=== PATIENT | female | born 1975 | race African-American/Black ===

== ENCOUNTER 2017-05-03 10:16 | Emergency (ER) | payer BC ==
[~2017-05-03] VITALS: Ht 157.5 cm; Wt 56.7 kg
[~2017-05-03 10:16] MED LIST: BENTYL PO; BENTYL20 MG PO; PANTOPRAZOLE SO40 MG PO; PERIACTIN PO; PROTONIX20 MG PO; VICODIN PO; ZOFRAN ODT4 MG PO
== END 2017-05-03 15:53 | disposition home or self-care (01) ==
LOC: ER 10:16
DX: R50.9 Fever, unspecified (principal); R05 Cough; J11.1 Influenza due to unidentified influenza virus with other respiratory manifestations; B34.9 Viral infection, unspecified
CPT/HCPCS: 87400; 99283

== ENCOUNTER 2017-09-10 10:48 | Emergency (ER) | payer BC ==
[~2017-09-10] VITALS: Ht 157.5 cm; Wt 64.9 kg
[2017-09-10] MEDS ORDERED: METHYLPREDNISOLONE ACETATE 40 MG/ML VIAL IM ONE (13:45)
== END 2017-09-10 12:30 | disposition short-term general hospital (02) ==
LOC: ER 10:48
DX: M25.542 Pain in joints of left hand (principal)

== ENCOUNTER 2017-09-16 09:58 | Emergency (ER) | payer BC ==
[~2017-09-16] VITALS: Ht 157.5 cm; Wt 64.9 kg
--- OUTSIDE RECORDS SUMMARY | 2017-09-16 10:01 | XMS REPORT | Continuity of Care Document ---
Author Author [facility] Organization [facility] Address [address] [place] [address] Phone Unavailable Care Team Providers Care Telecommunication Engineer Name Role Phone PANFILO FRANCOIS MD PCP Insurance Providers Guarantor Richa Meredith Address [address] [place] [address] Email [email or web address] [facility] Ppo Policy Number [id number] Subscriber's Name Richa Meredith Relationship 18 Self / Same As Patient Group Number [id number] Group Name [facility] Effective Date 14 Advance Directives Directive Response Recorded Date/Time Does the patient have an advance directive? No 01/31/14 3:27pm If yes, is advance directive on file with [facility]? No 01/31/14 3:27pm If not on file with [facility] will patient provide a copy? No 09/29/15 8:52am Do you have a Directive to Physician? No 09/10/17 1:04pm Do you have a Medical Power of Asset Recovery Specialist? No 09/10/17 1:04pm Do you have an out of hospital Do Not Resuscitate Order? No 09/10/17 1:04pm Do you have any special needs we should be aware of? No 09/10/17 1:04pm Do you have a support person here with you today? Yes 09/10/17 1:04pm Did patient receive Notice of Privacy Practices? Yes 09/10/17 1:04pm Did patient receive patient rights and responsibilities? Yes 09/10/17 1:04pm Problems Medical Problem Onset Date Status Flu Unknown Acute Medications Current Home Medications Medication Dose Units Route Directions Days Qty Instructions Start Date Dicyclomine Hcl (Bentyl) 20 Mg Tablet 20 Mg Oral Three Times A Day Pantoprazole Sodium (Protonix) 20 Mg Tablet.dr 20 Mg Oral As Needed Periactin 4 Mg Oral Twice A Day Past Home Medications Medication Directions Ordered Status Bentyl , 10 Mg Oral Three Times A Day Discontinued Ondansetron (Zofran Odt) 4 Mg Tab.rapdis, 4 Mg Oral Every 6 Hours Discontinued Pantoprazole Sodium (Protonix) 40 Mg Tablet.dr, 40 Mg Oral Daily Discontinued Pantoprazole Sodium (Protonix) 40 Mg Tablet.dr, 40 Mg Oral As Needed Discontinued Periactin , 4 Mg Oral Three Times A Day Discontinued Vicodin , 5 Mg Oral As Needed Discontinued Social History No social history information available. Hospital Discharge Instructions No hospital discharge instruction information available. Plan of Care Discharge Date 09/10/17 12:30pm Disposition REQUEST WITHDRAWN FOR MSE Condition at Discharge Other Forms Provided Work/School Excuse Prescriptions See Medication Section Functional Status No functional status information available. Allergies, Adverse Reactions, Alerts Allergen Type Severity Reaction Status Last Updated Penicillin Allergy Unknown Active 05/03/17 Tramadol Allergy Intermediate hives Active 06/01/14 Immunizations No immunization information available. Vital Signs Acute Vital Signs Vital Response Date/Time Height 5 ft 2 in 09/10/2017 11:25am Weight 143 lb 09/10/2017 11:25am Body Mass Index 26.2 kg/m^2 09/10/2017 11:25am Results Laboratory Results Test Name Result Units Flags Reference Collection Date/Time Result Date/ Time Comments Influenza Virus Types A,B Antigen NEGATIVE NEGATIVE 05/03/2017 10: 57am 05/03/2017 2:21pm Procedures No procedure information available. Encounters Encounter Location Arrival/Admit Date Discharge/Depart Date Attending Provider Departed Emergency Room [facility] 09/10/17 10:48am 09/10 12:30pm MITCH JENKINS MD Departed Emergency Room [facility] 05/03/17 10:16am 05/03 3:53pm MITCH SIMEON MD
[2017-09-16] MEDS ORDERED: BUPIVACAINE HCL 0.5% 10ML MPF VIAL INJ ONE (10:15)
[2017-09-16] MEDS ORDERED: METHYLPREDNISOLONE ACETATE 80 MG/ML VIAL IM ONE (10:15)
== END 2017-09-16 10:30 | disposition home or self-care (01) ==
LOC: ER 09:58
DX: M65.312 Trigger thumb, left thumb (principal); D64.9 Anemia, unspecified; I42.9 Cardiomyopathy, unspecified; Z87.19 Personal history of other diseases of the digestive system
CPT/HCPCS: 99282

== ENCOUNTER → 2018-01-03 | Outpatient (CLI) | payer BC ==
[2018-01-03 14:27] LABS: BASOPHILS % 0.3 % (0.0-1.0); EOSINOPHILS # (AUTO) 0.1 (0.0-0.4); EOSINOPHILS % 0.8 % (0.0-6.0); HEMATOCRIT 35.7 % (34.2-44.1); LYMPHOCYTES # (AUTO) 2.9 (1.0-3.2); LYMPHOCYTES % 31.4 % (18.0-39.1); MEAN CORPUSCULAR HEMOGLOBIN 31.7 pg (28-32); MEAN CORPUSCULAR HGB CONC 33.6 g/dL (31-35); MEAN CORPUSCULAR VOLUME 94.2 fL (81-99); MONOCYTES # (AUTO) 0.8 (0.2-0.8); MONOCYTES % 8.6 % (4.4-11.3); NEUTROPHILS # (AUTO) 5.4 (2.1-6.9); NEUTROPHILS % 58.8 % (38.7-80.0); PLATELET COUNT 194 x10e3/uL (140-360); RED BLOOD COUNT 3.79 x10e6/uL (3.6-5.1); RED CELL DISTRIBUTION WIDTH 14.8 % (11.7-14.4)
[2018-01-03 14:44] LABS: BILIRUBIN,URINE NEGATIVE (NEGATIVE); CLARITY,URINE SL CLOUDY (CLEAR); COLOR,URINE YELLOW (YELLOW); KETONES,URINE NEGATIVE (NEGATIVE); LEUKOCYTE ESTERASE ,URINE NEGATIVE (NEGATIVE); NITRITE,URINE NEGATIVE (NEGATIVE); PROTEIN,URINE DIPSTICK NEGATIVE (NEGATIVE); URINE UROBILINOGEN 0.2 mg/dL (0.2 - 1)
[2018-01-03 14:46] LABS: ALANINE AMINOTRANSFERASE 13 IU/L (0-55); ALBUMIN/GLOBULIN RATIO 1.1 (0.8-2.0); ALKALINE PHOSPHATASE 70 IU/L (40-150); ANION GAP 10.9 mmol/L (8-16); BLOOD UREA NITROGEN 9 mg/dL (7-26); BUN/CREATININE RATIO 12 (6-25); CALCIUM 9.8 mg/dL (8.4-10.2); CARBON DIOXIDE 25 mmol/L (22-29); CHLORIDE 101 mmol/L (98-107); CHOLESTEROL 149 MD/DL (0-199); CREATININE, SERUM 0.77 mg/dL (0.57-1.11); EST GLOMERULAR FILTRATION RATE > 60 ML/MIN (60-); GLUCOSE 88 mg/dL (74-118); HDL CHOLESTEROL 37 MG/DL (40-60); LDL CHOLESTEROL 81 MG/DL (60-130); POTASSIUM 3.9 mmol/L (3.5-5.1); SODIUM 133 mmol/L (136-145); TRIGLYCERIDES 153 MG/DL (0-149)
[2018-01-03 15:08] LABS: FREE THYROXINE INDEX 1.7772 (1.4-3.8)
[2018-01-03 16:49] LABS: RBC,URINE 0-5 /HPF (0-5)
== END ==
LOC: LAB 13:56
DX: Z00.00 Encounter for general adult medical examination without abnormal findings (principal)
CPT/HCPCS: 36415; 80053; 80061; 81001; 84436; 84479; 85025

== ENCOUNTER 2018-08-06 09:28 | Emergency (ER) | payer BC ==
[~2018-08-06] VITALS: Ht 157.5 cm; Wt 64.9 kg
[2018-08-06] MEDS ORDERED: TYLENOL WITH C1 EACH PO (10:16)
[2018-08-06] MEDS ORDERED: BACTRIM DS TAB1 EACH PO (10:16)
[2018-08-06] MEDS ORDERED: CLINDAMYCIN HC300 MG PO (10:16)
== END 2018-08-06 10:28 | disposition home or self-care (01) ==
LOC: ER 09:28
DX: L73.9 Follicular disorder, unspecified (principal); D64.9 Anemia, unspecified; F41.9 Anxiety disorder, unspecified; I42.9 Cardiomyopathy, unspecified; K57.90 Diverticulosis of intestine, part unspecified, without perforation or abscess without bleeding; F17.210 Nicotine dependence, cigarettes, uncomplicated; I49.9 Cardiac arrhythmia, unspecified
CPT/HCPCS: 99282